=== PATIENT | male | born 1950 | race Caucasian/White ===

== ENCOUNTER 2016-05-13 09:39 | Outpatient (CLI) | payer MEDICARE ==
[2016-05-13 10:27] LABS: #Basophils 0.1 thou/uL (0.0-0.2); #Eosinphils 0.2 thou/uL (0.0-0.7); #Lymphocytes 1.7 thou/uL (1.20-3.40); #Monocytes 0.4 thou/uL (0.11-0.59); #Neutrophils 3.8 thou/uL (1.40-6.50); %Basophils 1.8 % (0.0-1.0); %Eosinophils 3.5 % (0.0-10.0); %Monocytes 6.1 % (0.0-10.0); %Neutrophils 60.8 % (42.0-75.0); Hemoglobin 14.3 g/dL (14.0-18.0); Mean Corpuscular HGB CONC 34.1 g/dL (32.0-36.0); Mean Corpuscular Hemoglobin 31.3 pg (27.0-31.0); Mean Corpuscular Volume 91.6 fl (80.0-94.0); Mean Platelet Volume 8.3 fL (7.4-10.4); Platelet Count 193 thou/uL (130-400); RBC Distribution Width 12.8 % (11.5-14.5); Red Blood Cell (RBC) Count 4.59 mill/uL (4.70-6.10); White Blood Cell (WBC) Count 6.2 thou/uL (4.8-10.8)
[2016-05-13 10:38] LABS: Hemoglobin A1c 6.9 % (4.0-6.0)
[2016-05-13 10:40] LABS: ALT (SGPT) 18 U/L (0-55); AST (SGOT) 13 U/L (5-34); Albumin 4.4 g/dL (3.4-4.8); Alkaline Phosphatase 57 U/L (40-150); Anion Gap 15 mmol/L (10-20); BUN (Urea Nitrogen) 23 mg/dL (8.4-25.7); Bilirubin, Total 0.3 mg/dL (0.2-1.2); Calc. Creatinine Clearance 0 mL/min (70-130); Calcium 9.8 mg/dL (7.8-10.44); Carbon Dioxide 24 mmol/L (23-31); Cardiac Risk 2.7 (Less than 4.5); Chloride 104 mmol/L (98-107); Cholesterol 107 mg/dL (< 200 Desired); Estimated GFR-MDRD 57; Globulin 2.5 g/dL (2.4-3.5); Glucose 143 mg/dL (80-115); HDL Cholesterol 39 mg/dL (>60 Neg Risk); LDL Cholesterol, Calculated 42 mg/dL; Potassium 4.6 mmol/L (3.5-5.1); Protein, Total 6.9 g/dL (5.8-8.1); Sodium 138 mmol/L (136-145); Triglycerides 129 mg/dL (Less than 150)
[2016-05-13 11:06] LABS: Free T4 (Free Thyroxine) 0.95 ng/dL (0.70-1.48); PSA-Asymptomatic (SCREENING) 3.89 ng/mL (0-4.0); Thyroid Stimulating Hormone 1.146 uIU/mL (0.35-4.94)
== END 2016-05-13 09:40 | disposition home or self-care (01) ==
LOC: NAV LAB 09:39
PROVIDERS: ATTEND Family Medicine
DX: Z12.5 Encounter for screening for malignant neoplasm of prostate (principal); E11.9 Type 2 diabetes mellitus without complications
CPT/HCPCS: 36415; 80053; 80061; 83036; 84439; 84443; 85025; G0103

== ENCOUNTER 2016-11-30 09:09 | Outpatient (CLI) | payer MEDICARE | END 2016-11-30 09:10 | disposition home or self-care (01) | LOC: NAV EKG 09:09 | DX: Z01.818 Encounter for other preprocedural examination (principal) | CPT/HCPCS: 93005 ==

== ENCOUNTER 2017-06-17 07:46 | Emergency (ER) | payer MEDICARE ==
--- NOTE | 2017-06-17 09:06 | RAD ---
CHEST 2 VIEWS: Date: 06/17/17 HISTORY: Patient tripped and fell last week. COMPARISON: None. FINDINGS: Dorsal column stimulators are identified. Atherosclerosis of aorta. Normal cardiac silhouette. Pulmon maryan vessels and hilum are normal. Costophrenic angles are clear. No consolidation or mass. No pneumot horax or osseous abnormalities. IMPRESSION: 1. No acute cardiopulmonary process. 2. Atherosclerosis of aorta. POS: BINU
== END 2017-06-17 08:42 | disposition home or self-care (01) ==
LOC: NAV ERS 07:46
DX: S22.31XA Fracture of one rib, right side, initial encounter for closed fracture (principal); E11.9 Type 2 diabetes mellitus without complications; E78.5 Hyperlipidemia, unspecified; I10 Essential (primary) hypertension; Z87.891 Personal history of nicotine dependence; Z79.84 Long term (current) use of oral hypoglycemic drugs; Z79.899 Other long term (current) drug therapy; W18.30XA Fall on same level, unspecified, initial encounter
CPT/HCPCS: 71046; 93005

== ENCOUNTER 2018-01-18 09:03 | Outpatient (CLI) | payer MEDICARE ==
--- NOTE | 2018-01-18 09:38 | RAD ---
THREE VIEWS OF THE LEFT SHOULDER: Comparison: None. History: Left shoulder pain. FINDINGS: Three views of the left shoulder shows no evidence of acute fracture or dislocation. Mild degenerativ e changes are seen in the glenohumeral joint. The visualized left thorax is unremarkable. IMPRESSION: Mild left shoulder degenerative changes without acute osseous abnormality. POS: BINU
== END 2018-01-18 09:04 | disposition home or self-care (01) ==
LOC: NAV RAD 09:03
PROVIDERS: ATTEND Family Medicine
DX: M25.512 Pain in left shoulder (principal); M19.012 Primary osteoarthritis, left shoulder

== ENCOUNTER 2018-07-27 13:56 | Emergency (ER) | payer MEDICARE ==
--- NOTE | 2018-07-27 14:59 | RAD ---
XR Chest Pa Lat STANDARD HISTORY: Chest pain COMPARISON: 06/17/2017 FINDINGS: The heart size is normal. The lungs are well expanded without focal areas of consolidation, pneumothorax or pleural effusions. There are degenerative changes in the spine. Dorsal column stimulators remain in place. The aorta is tortuous. IMPRESSION: No radiographic evidence of acute cardiopulmonary process.
== END 2018-07-27 16:00 | disposition home or self-care (01) ==
LOC: NAV ERS 13:56
DX: J44.1 Chronic obstructive pulmonary disease with (acute) exacerbation (principal); E11.9 Type 2 diabetes mellitus without complications; E78.5 Hyperlipidemia, unspecified; I10 Essential (primary) hypertension; Z87.891 Personal history of nicotine dependence; Z79.899 Other long term (current) drug therapy; Z79.891 Long term (current) use of opiate analgesic; Z79.84 Long term (current) use of oral hypoglycemic drugs
CPT/HCPCS: 71046; J7620

== ENCOUNTER 2018-09-15 09:36 | Emergency (ER) | payer MEDICARE ==
--- NOTE | 2018-09-15 10:24 | RAD ---
XR Shoulder Rt 3 View STANDARD History: Injury Comparison: Radiograph 03/29/2018 Findings: Subtle linear lucency near the mid acromion. Calcific tendinosis rotator cuff. Coracoid is intact. Visualized ribs are intact. Impression: Nondisplaced mid acromion fracture.
== END 2018-09-15 11:00 | disposition home or self-care (01) ==
LOC: NAV ERS 09:36
DX: S42.124A Nondisplaced fracture of acromial process, right shoulder, initial encounter for closed fracture (principal); E11.9 Type 2 diabetes mellitus without complications; I10 Essential (primary) hypertension; E78.5 Hyperlipidemia, unspecified; Z87.891 Personal history of nicotine dependence; Z79.899 Other long term (current) drug therapy; Z79.84 Long term (current) use of oral hypoglycemic drugs; W19.XXXA Unspecified fall, initial encounter

== ENCOUNTER 2019-10-17 10:18 | Outpatient (CLI) | payer MEDICARE ==
--- NOTE | 2019-10-17 10:57 | CT ---
CT Lumbar Spine WO Con History: Spondylosis without myelopathy or radiculopathy Comparison: None. Findings: Aortic contour is nonaneurysmal. Mild vascular calcifications. No acute fracture or malalignment of the lumbar spine. Chronic appearing left lateral wedge compressi on deformity of T12. Spinal stimulator wires enter the spinal canal at T12/L1 interspace. Laminectomy changes L3 and L4 partial laminectomy at L2. Levels are as follows: L1/L2: Mild degenerative disc space height loss. Small disc bulge. No significant neural foraminal or spinal canal narrowing. L2/L3: Moderate facet degenerative disc space height loss. Large disc osteophyte complex. Moderate to severe right and moderate left neural foraminal narrowing. Moderate hypertrophic facet arthropathy. Laminectomy change prevents significant spinal canal narrowing. L3/L4: Mild degenerative disc space height loss with large circumferential disc osteophyte complex. M oderate bilateral neural foraminal narrowing. Laminectomy change prevents significant spinal canal narrowing. L4/L5: Moderate degenerative disc space height loss with large disc osteophyte complex. Moderate hype rtrophic facet arthropathy. Moderate to severe bilateral neural foraminal narrowing. Laminectomy change is been significant spinal canal narrowing. L5/S1: Small disc bulge mild posterior degenerative disc space height loss. Moderate hypertrophic fac et arthrosis. Moderate bilateral neural foraminal narrowing. Impression: Relatively high-grade multilevel neural foraminal narrowing as described due to disc oste ophyte complexes and hypertrophic facet arthrosis.
== END 2019-10-17 10:19 | disposition home or self-care (01) ==
LOC: NAV CT 10:18
DX: M47.27 Other spondylosis with radiculopathy, lumbosacral region (principal); M47.26 Other spondylosis with radiculopathy, lumbar region; M48.061 Spinal stenosis, lumbar region without neurogenic claudication; M48.07 Spinal stenosis, lumbosacral region
CPT/HCPCS: 72131

== ENCOUNTER 2019-11-04 19:41 | Emergency (ER) | payer MEDICARE ==
[2019-11-04 20:38] LABS: #Basophils 0.1 thou/uL (0.0-0.2); #Eosinphils 0.1 thou/uL (0.0-0.7); #Lymphocytes 1.2 thou/uL (1.20-3.40); #Monocytes 0.7 thou/uL (0.11-0.59); #Neutrophils 3.9 thou/uL (1.40-6.50); %Eosinophils 1.5 % (0.0-10.0); %Lymphocytes 20.4 % (21.0-51.0); %Monocytes 11.5 % (0.0-10.0); %Neutrophils 65.6 % (42.0-75.0); Hemoglobin 13.4 g/dL (14.0-18.0); Mean Corpuscular HGB CONC 31.5 g/dL (32.0-36.0); Mean Corpuscular Hemoglobin 30.2 pg (27.0-31.0); Mean Corpuscular Volume 95.9 fL (78.0-98.0); Mean Platelet Volume 7.7 fL (7.4-10.4); Platelet Count 164 thou/uL (130-400); RBC Distribution Width 12.2 % (11.5-14.5); Red Blood Cell (RBC) Count 4.41 mill/uL (4.70-6.10)
[2019-11-04] MEDS ORDERED: Sodium Chloride 0.9% 1,000 ML ONE ×3 (20:41→22:52)
[2019-11-04 20:50] LABS: PTT 30.6 sec (22.9-36.1); Prothrombin Time 13.3 sec (12.0-14.7)
[2019-11-04 20:57] LABS: ALT (SGPT) 15 U/L (8-55); AST (SGOT) 17 U/L (5-34); Albumin 4.3 g/dL (3.4-4.8); Alkaline Phosphatase 70 U/L (40-110); Anion Gap 20 mmol/L (10-20); BUN (Urea Nitrogen) 100 mg/dL (8.4-25.7); Bilirubin, Total 0.4 mg/dL (0.2-1.2); Calc. Creatinine Clearance 0 mL/min (70-130); Calcium 10.6 mg/dL (7.8-10.44); Carbon Dioxide 18 mmol/L (23-31); Chloride 100 mmol/L (98-107); Estimated GFR-MDRD 15; Glucose 106 mg/dL (80-115); Potassium 4.8 mmol/L (3.5-5.1); Protein, Total 7.3 g/dL (5.8-8.1); Sodium 133 mmol/L (136-145)
--- NOTE | 2019-11-04 21:35 | RAD ---
RADIOGRAPH CHEST 1 VIEW: DATE: 11/04/2019 HISTORY: 69-year-old male with hypertension, weakness, and dizziness. COMPARISON: 07/27/2018 FINDINGS: There are no airspace densities, pulmonary edema, pneumothorax, or cardiomegaly. The lateral costophr enic angles are sharp. Atherosclerotic calcification of aortic arch. Spinal cord dorsal column stimulator leads with distal tip overlying mid thoracic spine. Prominent interstitial markings. Sever al old left rib fracture deformities. No interval change. IMPRESSION: 1. No acute cardiopulmonary findings. 2. Atherosclerosis of thoracic aorta. 3. Spinal cord stimulator. 4. Old left rib fractures
[2019-11-04 22:30] LABS: Anion Gap 19 mmol/L (10-20); BUN (Urea Nitrogen) 96 mg/dL (8.4-25.7); Calc. Creatinine Clearance 0 mL/min (70-130); Calcium 9.5 mg/dL (7.8-10.44); Carbon Dioxide 16 mmol/L (23-31); Chloride 104 mmol/L (98-107); Estimated GFR-MDRD 18; Glucose 135 mg/dL (80-115); Potassium 4.8 mmol/L (3.5-5.1); Sodium 134 mmol/L (136-145)
== END 2019-11-05 00:58 | disposition short-term general hospital (02) ==
LOC: NAV ERS 19:41
DX: N17.9 Acute kidney failure, unspecified (principal); E86.0 Dehydration; E78.5 Hyperlipidemia, unspecified; E78.00 Pure hypercholesterolemia, unspecified; E11.9 Type 2 diabetes mellitus without complications; I10 Essential (primary) hypertension; Z87.891 Personal history of nicotine dependence; Z79.899 Other long term (current) drug therapy
CPT/HCPCS: 36415; 71045; 80053; 82550; 84484; 85025; 85610; 85730; 93005; 94760; 96360; 96361; J7050

== ENCOUNTER 2020-06-27 11:37 | Emergency (ER) | payer OTHER, MEDICARE | END 2020-06-27 12:48 | disposition home or self-care (01) | LOC: NAV ERS 11:37 | DX: S22.42XA Multiple fractures of ribs, left side, initial encounter for closed fracture (principal); M25.512 Pain in left shoulder; E78.5 Hyperlipidemia, unspecified; E78.00 Pure hypercholesterolemia, unspecified; I10 Essential (primary) hypertension; E11.9 Type 2 diabetes mellitus without complications; Z85.46 Personal history of malignant neoplasm of prostate; Z87.891 Personal history of nicotine dependence; Z79.899 Other long term (current) drug therapy; W01.0XXA Fall on same level from slipping, tripping and stumbling without subsequent striking against object, initial encounter | CPT/HCPCS: 99001 ==

== ENCOUNTER 2021-04-07 09:28 | Outpatient (CLI) | payer MEDICARE ==
[2021-04-07 11:38] LABS: AST (SGOT) 13 U/L (5-34); Albumin 4.3 g/dL (3.4-4.8); Alkaline Phosphatase 70 U/L (40-110); Anion Gap 13 mmol/L (10-20); Calc. Creatinine Clearance 0 mL/min (70-130); Calcium 9.8 mg/dL (7.8-10.44); Carbon Dioxide 27 mmol/L (23-31); Chloride 105 mmol/L (98-107); Globulin 2.6 g/dL (2.4-3.5); Glucose 153 mg/dL (83-110); Potassium 4.6 mmol/L (3.5-5.1); Protein, Total 6.9 g/dL (5.8-8.1); Sodium 140 mmol/L (136-145)
[2021-04-07 11:39] LABS: #Basophils 0.1 thou/uL (0.0-0.2); #Eosinphils 0.1 thou/uL (0.0-0.7); #Lymphocytes 1.6 thou/uL (1.20-3.40); #Monocytes 0.5 thou/uL (0.11-0.59); #Neutrophils 3.9 thou/uL (1.40-6.50); %Basophils 1.5 % (0.0-1.0); %Eosinophils 2.2 % (0.0-10.0); %Lymphocytes 26.1 % (21.0-51.0); %Monocytes 7.3 % (0.0-10.0); %Neutrophils 62.9 % (42.0-75.0); ALT (SGPT) 14 U/L (8-55); BUN (Urea Nitrogen) 24 mg/dL (8.4-25.7); Bilirubin, Total 0.3 mg/dL (0.2-1.2); Hemoglobin 14.3 g/dL (14.0-18.0); Mean Corpuscular HGB CONC 31.4 g/dL (32.0-36.0); Mean Corpuscular Hemoglobin 30.8 pg (27.0-31.0); Mean Platelet Volume 7.1 fL (7.4-10.4); Platelet Count 188 thou/uL (130-400); RBC Distribution Width 13.5 % (11.5-14.5); Red Blood Cell (RBC) Count 4.66 mill/uL (4.70-6.10); White Blood Cell (WBC) Count 6.2 thou/uL (4.8-10.8)
== END 2021-04-07 09:29 | disposition home or self-care (01) ==
LOC: NAV EKG 09:28
DX: Z01.812 Encounter for preprocedural laboratory examination (principal)
CPT/HCPCS: 36415; 80053; 85025